=== PATIENT | female | born 1970 | race Two or more races ===

== ENCOUNTER → 2024-02-26 | Outpatient (BNVA) | payer BC, SELFPAY | END | disposition home or self-care (01) | PROVIDERS: PCP Internal Medicine; Referring Provider Internal Medicine; Visit Provider Urology | DX: N32.81 Overactive bladder (principal); G89.4 Chronic pain syndrome; Z87.440 Personal history of urinary (tract) infections; E66.9 Obesity, unspecified; Z68.29 Body mass index [BMI] 29.0-29.9, adult | CPT/HCPCS: 81003; 99212; G0463 ==

== ENCOUNTER → 2024-02-27 | Outpatient (CLI) | payer BC, SELFPAY ==
[2024-02-27 16:52] LABS: Basophils % (Auto) 1 % (0-2.5); Eosinophils # (Auto) 0.1 Thou/mm3 (0.0-0.5); Eosinophils % (Auto) 1 % (0-10); Hematocrit 41.8 % (36.0-46.0); Hemoglobin 14.2 g/dL (12.0-16.0); Immature Granulocytes % (Auto) 1 % (0-0); Immature Granulocytes Auto 0.04 Thou/mm3 (0.00-0.00); Lymphocytes # (Auto) 1.2 Thou/mm3 (1.0-4.8); Lymphocytes % (Auto) 26 % (10-50); Mean Corpuscular Hemoglobin 30.9 pg (25.0-35.0); Mean Corpuscular Volume 91 fL (80-100); Monocytes # (Auto) 0.3 Thou/mm3 (0.0-0.8); Monocytes % (Auto) 7 % (0-12); Neutrophils % (Auto) 64 % (37-80); Nucleated Red Blood Cell % 0 /100 WBC (0); Platelet Count 269 Thou/mm3 (140-440); RDW Standard Deviation 38.9 fL (36.4-46.3); Red Blood Count 4.59 Miln/mm3 (4.00-5.20); White Blood Count 4.6 Thou/mm3 (3.6-11.0)
[2024-02-27 17:11] LABS: Alanine Aminotransferase 72 U/L (10-49); Albumin, Serum 4.9 gm/dL (3.5-5.0); Albumin/Globulin Ratio 2.5 (1.2-2.2); Alkaline Phosphatase 171 U/L (46-116); Anion Gap 8 (7-16); Aspartate Amino Transferase 37 U/L (0-34); BUN/Creatinine Ratio 16 Ratio (12-20); Bilirubin,Total 0.7 mg/dL (0.3-1.2); Blood Urea Nitrogen 11 mg/dL (9-23); C-Reactive Protein < 0.4 mg/dL (0.0-0.9); Calcium 10.1 mg/dL (8.3-10.6); Calcium (Corrected) 10.1 mg/dL (8.5-10.1); Carbon Dioxide 29.4 mMol/L (20.0-31.0); Chloride 103 mMol/L (98-107); Creatinine (Component) 0.7 mg/dL (0.6-1.3); Glucose 103 mg/dL (74-106); Osmolality,Calculated 278 (275-295); Potassium 4.2 mMol/L (3.4-5.1); Sodium 140 mMol/L (136-145); Total Protein 6.9 gm/dL (5.7-8.2); eGFR > 60 See Note
[2024-02-27 17:13] LABS: Creatinine,Random Urine 116 mg/dL (30-125); Protein Total, Random Urine 9 mg/dL (1-14)
[2024-02-27 17:30] LABS: Sed Rate (ESR) 7 mm/hr (0-30)
[2024-03-03 13:47] LABS: Sjogren's antibody (SS-A) <1.0 NEG AI (<1.0 NEGATIVE); Sm Antibody <1.0 NEG AI (<1.0 NEGATIVE)
[2024-03-04 06:33] LABS: Complement Component C3* 151 mg/dL (83-193); Complement Component C4c* 28 mg/dL (15-57); DNA (ds) Antibody* <1 IU/mL; Sjogren's Antibody (SS-B) <1.0 NEG AI (<1.0 NEGATIVE); Sm/RNP Antibody <1.0 NEG AI (<1.0 NEGATIVE)
== END | disposition home or self-care (01) ==
LOC: COPL 15:47
PROVIDERS: PCP Internal Medicine; Referring Provider Internal Medicine Rheumatology; Visit Provider Internal Medicine Rheumatology
DX: R76.8 Other specified abnormal immunological findings in serum (principal)
CPT/HCPCS: 36415; 80053; 82570; 84156; 85025; 85652; 86140; 86160; 86225; 86235

== ENCOUNTER → 2024-03-04 | Outpatient (CLI) | payer BC, SELFPAY ==
--- NOTE | 2024-03-04 16:00 | XR_ITS ---
Examination: CT maxillofacial, without intravenous contrast. 2-D sagittal reconstructions. 3-D reconstructions. Date and time of exam:March 04, 2024 1607 hours INDICATIONS: Sinus pressure and pain beginning 5 years ago CTDI: vol (mGy):7.72 DLP: (mGycm):115 Technique: Multiple axial images of maxillofacial region, 3.0 mm slice thickness. 2-D sagittal and coronal reconstructions. 3-D reconstructions. Low dose protocols were performed. One or more of the following dose reduction techniques were used; automated exposure control, adjustment of the mA and/or KV according to patient size, use of iterative reconstruction technique. Findings: Mild mucosal thickening ethmoid air cells Maxillary antra trace mucosal thickening No deviation nasal septum Mucosal thickening up to 3 mm in the nasal airways No occlusion ostiomeatal complexes No nasopharyngeal mass Negative for otitis media Negative for acquired cholesteatoma Adequate mastoid aeration The optic globes exhibit symmetry with no retro-orbital mass lesion No cerebral mass lesion is noted IMPRESSION: Mild sinusitis as above
== END | disposition home or self-care (01) ==
LOC: CCTX 15:38
PROVIDERS: Referring Provider Otolaryngology; Visit Provider Otolaryngology
DX: J32.8 Other chronic sinusitis (principal)
CPT/HCPCS: 70486

== ENCOUNTER 2024-03-25 05:10 | Emergency (ER) | payer BC, SELFPAY ==
[2024-03-25 05:19] VITALS: BP 135/91; PULSE 71; RESP 19; TEMP 36.6; O2SAT 100
--- NOTE | 2024-03-25 05:28 | XR_ITS ---
Examination: CT abdomen and pelvis without contrast. Coronal 3-D reconstructions. Sagittal 2-D reconstructions. Date and time of exam:March 25, 2024 at 0541 hrs. Indications: Bilateral flank and lower back pain beginning 2 days ago, history kidney stones on CT abdomen pelvis February 01, 2016 CTDI: vol (mGy): 8.97 DLP: (mGycm): 478 Technique: Axial images of the abdomen have been obtained, 3 mm slice thickness Intravenous contrast material has not been administered. Low dose protocols were performed. One or more of the following dose reduction techniques were used; automated exposure control, adjustment of the mA and/or KV according to patient size, use of iterative reconstruction technique. Findings: No focal liver lesions or biliary tract dilatation Spleen is not enlarged No pancreatic mass Bilateral renal calculi including 3 mm calculus lower pole right kidney and 1 to 2 mm renal calculi left kidney Mild to moderate left hydronephrosis secondary to 4 mm distal left ureterovesical junction calculus Aorta normal size No bowel obstruction Normal appendix No diverticulitis Anteverted uterus Grade 1 anterolisthesis L4 on L5 Impression: Bilateral renal calculi Mild to moderate left hydronephrosis secondary to 4 mm distal left ureterovesical junction calculus
--- NOTE | 2024-03-25 05:29 | PD.EDRME ---
Rapid Medical Screening Exam RME Arrival date/time: 03/25/24 05:10 53-year-old female past medical history of fibromyalgia and lupus presents emergency department complaining of bilateral flank pain, painful urination, and nausea. Chief Complaint: Urogenital-Female Time Seen by Provider: 03/25/24 05:25 Vital signs: Vital Signs Temperature 97.8 F 03/25/24 05:19 Pulse Rate 71 03/25/24 05:19 Respiratory Rate 19 03/25/24 05:19 Blood Pressure 135/91 H 03/25/24 05:19 Pulse Oximetry (%) 100 03/25/24 05:19 Oxygen Delivery Method Room Air 03/25/24 05:19 Vital signs reviewed by provider: Yes
[2024-03-25 06:19] LABS: Collection Type, Urine Clean Catch
[2024-03-25 06:19] LABS: Basophils % (Auto) 0 % (0-2.5); Eosinophils # (Auto) 0.1 Thou/mm3 (0.0-0.5); Eosinophils % (Auto) 1 % (0-10); Hematocrit 38.9 % (36.0-46.0); Hemoglobin 13.5 g/dL (12.0-16.0); Immature Granulocytes % (Auto) 0 % (0-0); Immature Granulocytes Auto 0.04 Thou/mm3 (0.00-0.00); Lymphocytes # (Auto) 1.2 Thou/mm3 (1.0-4.8); Lymphocytes % (Auto) 11 % (10-50); Mean Corpuscular HGB Conc 34.7 g/dl (31.0-37.0); Mean Corpuscular Hemoglobin 31.5 pg (25.0-35.0); Mean Corpuscular Volume 91 fL (80-100); Monocytes # (Auto) 0.9 Thou/mm3 (0.0-0.8); Monocytes % (Auto) 8 % (0-12); Neutrophils # (Auto) 9.2 Thou/mm3 (1.8-7.7); Neutrophils % (Auto) 80 % (37-80); Nucleated Red Blood Cell % 0 /100 WBC (0); Platelet Count 201 Thou/mm3 (140-440); RDW Standard Deviation 40.9 fL (36.4-46.3); Red Blood Count 4.28 Miln/mm3 (4.00-5.20); White Blood Count 11.5 Thou/mm3 (3.6-11.0)
[2024-03-25 06:22] LABS: Bilirubin,Urine Negative (Negative); Blood,Urine 2+ (Negative); Clarity,Urine Clear (Clear/Hazy); Color,Urine Yellow (Lt Yel-Yel); Culture Indicated,Urine Not Indicated; Glucose, Urine Negative (Negative); Ketones,Urine Negative (Negative); Leukocyte Esterase,Urine Negative (Negative); Nitrite,Urine Negative (Negative); Protein,Urine 1+ (Neg - Trace); RBC,Urine 33 /hpf (0-3); Specific Gravity,Urine 1.014 (1.001-1.035); Squamous Epithelial Cell,Urine 1 /hpf (0-5); Urobilinogen,Urine Negative mg/dL (0.0-1.0); WBC,Urine 7 /hpf (0-5)
[2024-03-25] MEDS: KETOROLAC INJ 60 MG/2 ML VIAL 30 MG IM (06:29)
[2024-03-25] MEDS: ONDANSETRON ODT 4 MG TABRAP PO (06:29)
[2024-03-25 06:41] LABS: Alanine Aminotransferase 47 U/L (10-49); Albumin, Serum 4.4 gm/dL (3.5-5.0); Albumin/Globulin Ratio 2.1 (1.2-2.2); Alkaline Phosphatase 142 U/L (46-116); Anion Gap 5 (7-16); Aspartate Amino Transferase 41 U/L (0-34); BUN/Creatinine Ratio 11 Ratio (12-20); Bilirubin,Total 0.4 mg/dL (0.3-1.2); Blood Urea Nitrogen 10 mg/dL (9-23); Calcium 9.9 mg/dL (8.3-10.6); Calcium (Corrected) 9.9 mg/dL (8.5-10.1); Carbon Dioxide 28.7 mMol/L (20.0-31.0); Chloride 109 mMol/L (98-107); Creatinine (Component) 0.9 mg/dL (0.6-1.3); Estimated Creatinine Clearance 5.2 mL/min (>60); Globulin 2.1 gm/dL (2.3-3.5); Glucose 97 mg/dL (74-106); Lipase 41 U/L (12-53); Osmolality,Calculated 283 (275-295); Potassium 4.3 mMol/L (3.4-5.1); Sodium 143 mMol/L (136-145); Total Protein 6.5 gm/dL (5.7-8.2); eGFR > 60 See Note
--- NOTE | 2024-03-25 07:05 | PRELIM_ITS ---
CT scan of the abdomen and pelvis without intravenous contrast (axial sections with sagittal and coronal reformats) March 25, 2024 0540 hours Clinical History: Bilateral flank pain history of kidney stone Comparison: No prior study is available for comparison. Findings: There is scarring in bilateral lower lobes. Bilateral breast implants are seen. There is a 4mm obstructing calculus at the left ureterovesical junction with mild hydroureteronephrosis. The left kidney is enlarged with extensive perinephric fat stranding. Punctate nonobstructing renal calculi are seen bilaterally. Fatty infiltration of the liver is noted. The gallbladder, pancreas, spleen and adrenals are unremarkable on this noncontrast study. No evidence of bowel obstruction. Hyperdense material in the stomach is noted. The appendix is within normal limits. There is no mesenteric or retroperitoneal adenopathy. The urinary bladder is incompletely distended, limiting evaluation for wall thickening. There is no free fluid or free air. The osseous structures are unremarkable. Impression: A 4mm obstructing calculus at the left ureterovesical junction with mild hydroureteronephrosis. Extensive left sided perinephric fat stranding. While nonspecific, urinary infection cannot be excluded. Recommend clinical correlation. Hyperdense material in the stomach, which may represent ingested medication versus retained oral contrast. However, in the appropriate clinical setting, the possibility of active gastrointestinal hemorrhage cannot be excluded. Other findings as described above. Discussion Details: Results verbally communicated to : Dr. Jalloh at 06:56 AM 03/25/2024 Report Electronically Signed By: Kendy Matthews 03/25/2024 7:04:56 AM [EST]
--- NOTE | 2024-03-25 07:43 | EDNOTE_ITS ---
<Statement entered by Nona Branch MD - 03/25/24 14:04> As co-signing physician, I was present and available for consult prn. I concur with the plan and care as documented by the midlevel provider. ED Female Urogenital RME/HPI General Chief complaint: Urogenital-Female Stated complaint: LOWER BACK PAIN, PAIN WITH URINATION Time Seen by Provider: 03/25/24 05:25 Arrival date/time: 03/25/24 05:10 53-year-old female past medical history of kidney stone requiring stent placement, fibromyalgia and lupus presents emergency department complaining of bilateral flank pain mostly in the left side, painful urination, and nausea. Limitations: no limitations RME / HPI RME / HPI Narrative: 03/25/24 05:10 53-year-old female past medical history of fibromyalgia and lupus presents emergency department complaining of bilateral flank pain, painful urination, and nausea. Related Data Home Medications ?Medication ?Instructions ?Recorded ?Confirmed Cetirizine * (ZYRTEC *) 10 mg PO QAM #0 tabs 6 02/26/24 magnesium 250 mg tablet 500 mg PO QDAY #0 tabs 09/1202/26/24 meloxicam 15 mg tablet (Mobic) 15 mg PO HS #0 tabs 02/2702/26/24 mirabegron 50 mg tablet,extended 50 mg PO QDAY ##0 02/2702/26/24 release 24 hr (Myrbetriq) hydroxychloroquine 200 mg tablet 400 mg PO QHS 3 02/26/24 omeprazole 40 mg capsule,delayed 40 mg PO QDAY 3 02/26/24 release tizanidine 4 mg capsule 4 mg PO QDAY PRN 05/12/22 pregabalin 150 mg capsule (Lyrica) 150 mg PO QDAY 11/1202/26/24 Previous Rx's ?Medication ?Instructions ?Recorded ketorolac 10 mg tablet 10 mg PO TID PRN pain 3 days #10 03/25/24 tabs ondansetron 4 mg disintegrating 4 mg PO Q8H PRN nausea and 03/25/24 tablet vomiting #10 tabs tamsulosin 0.4 mg capsule (Flomax) 0.4 mg PO QDAY 14 d ays #14 caps 03/25/24 Allergies Allergy/AdvReac Type Severity Reaction Status Date / Time Penicillins Allergy Severe DIFF Unverified 02/26/24 14:42 BREATHING, SWELLING hydrocodone Allergy Unknown DIZZY AND Verified 02/26/24 14:42 VOMITING hydromorphone Allergy Unknown DIZZY, Verified 02/26/24 14:42 VOMITING morphine Allergy Unknown DIZZY,VOMIT Verified 02/26/24 14:42 ING Review of Systems Review of Systems Systems Reviewed: All systems reviewed, normal except as documented Constitutional Constitutional: Reports system reviewed and no additional complaints, except as documented, Denies fever(s) and Denies headache(s) Eyes Eyes: Reports system reviewed and no additional complaints, except as documented and Denies blurry vision ENT Ears, Nose, Mouth, and Throat: Reports system reviewed and no additional complaints, except as documented, Denies headache(s), Denies nasal congestion and Denies nasal discharge Cardiovascular Cardiovascular: Reports system reviewed and no additional complaints, except as documented, Denies chest pain and Denies dyspnea Respiratory Respiratory: Reports system reviewed and no additional complaints, except as documented, Denies chest congestion, Denies cough and Denies dyspnea Gastrointestinal Gastrointestinal: Reports system reviewed and no additional complaints, except as documented, Reports abdominal pain, Reports nausea and Reports vomiting Genitourinary Genitourinary: Reports system reviewed and no additional complaints, except as documented, Denies dysuria and Reports other (Left flank pain) Integumentary/Breasts Skin/Breast: Reports system reviewed and no additional complaints, except as documented and Denies rash Neurologic Neurologic: Reports system reviewed and no additional complaints, except as documented, Reports as per HPI and Denies headache(s) Past Medical History Past Medical History CARDIAC: Negative Congestive Heart Failure RESPIRATORY: Negative Chronic Obstructive Pulmonary Disease (COPD) GENITOURINARY: Negative Renal Disease ENDOCRINE: Negative Diabetes Mellitus Type 1 or Diabetes Mellitus Type 2 Social History SMOKING STATUS: Never smoker ED Exam General Limitations: Present no limitations General appearance: Present alert and in no apparent distress Head Head exam: Present atraumatic Eye Eye exam: Present normal appearance, PERRL and EOMI ENT ENT exam: Present normal exam, normal oropharynx and mucous membranes moist Neck Neck exam: Present normal inspection, full ROM and trachea midline Chest Chest inspection: Present normal inspection and symmetric chest wall rise Respiratory Respiratory exam: Present normal lung sounds bilaterally Cardiovascular Cardiovascular exam: Present regular rate, normal rhythm and normal heart sounds Abdominal Exam Abdominal exam: Present soft and normal bowel sounds Extremities Exam Extremities exam: Present normal inspection and full ROM Back Exam Back exam: Present normal inspection, full ROM and paraspinal tenderness; Absent tenderness, CVA tenderness (R) or CVA tenderness (L) Neurological Exam Neurological exam: Present alert, oriented X3 and CN II-XII intact Psychiatric Psychiatric exam: Present normal affect and normal mood Skin Skin exam: Present warm, dry, intact and normal color Course Quality Measures none Orders Category Date Time Status CT abdomen pelvis wo con Stat Exams 03/25/24 05:28 Completed CBC Stat Lab 03/25/24 06:08 Completed CMP [Comprehensive Metabolic Panel] Stat Lab 03/25/24 06:08 Completed Lipase Stat Lab 03/25/24 06:08 Completed Urinalysis, C/S if Indicated Stat Lab 03/25/24 06:00 Completed Ketorolac Inj [Toradol Inj] Med 03/25/24 05:28 Discontinued 30 mg IM X1 ONE Ketorolac Inj [Toradol Inj] Med 03/25/24 07:43 Discontinued 30 mg IM X1 ONE Ondansetron Odt [Zofran Odt] Med 03/25/24 05:28 Discontinued 4 mg PO X1 ONE Vital Signs Vital signs: Vital Signs Temperature 97.8 F 03/25/24 05:19 Pulse Rate 71 03/25/24 05:19 Respiratory Rate 19 03/25/24 05:19 Blood Pressure 135/91 H 03/25/24 05:19 Pulse Oximetry (%) 100 03/25/24 05:19 Oxygen Delivery Method Room Air 03/25/24 05:19 O2 saturation 100% on room air with normal limits Urogenital - Female MDM Narrative MDM Narrative:: 53-year-old female past medical history of kidney stone requiring stent placement, fibromyalgia and lupus presents emergency department complaining of bilateral flank pain mostly in the left side, painful urination, and nausea. On exam patient well-appearing patient does not appear ill or toxic patient does not appear to be acute distress Lab work as well as CT scan obtained lab work unremarkable CT scan consistent with distal 4 mm kidney stone consistent with patient's pain Patient was given Toradol emergency department which did improve her pain patient given Zofran which relieved her nausea Patient given 1 more dose of Toradol prior to disposition Patient discharged home in no distress to follow-up with primary care doctor in the next 24 to 48 hours and for any worsening symptoms to return to the ER immediately Patient data External records reviewed:: [facility] previous records Clinical information provided by:: patient Social determinants that could affect healthcare access:: none Patient has the following chronic illnesses:: See history How is presenting disease/condition affected by chronic disease/condition?: caused by Evaluation data The following diagnostics were reviewed and interpreted by me:: lab results and radiology exam(s) Lab and/or radiology exams considered but not ordered:: Labs radiology obtain Interpretation Summary: Reviewed by me Medications / Prescriptions Medications or Prescriptions considered but not ordered:: Given Medication administrations:: Medication Administration History Discontinued Medications Ketorolac Tromethamine (Ketorolac Inj 60 Mg/2 Ml Vial) 30 mg IM X1 ONE Stop: 03/25/24 05:29 Last Admin: 03/25/24 06:29 Dose: 30 mg Documented By: JAVID Ketorolac Tromethamine (Ketorolac Inj 30 Mg/Ml Vial) 30 mg IM X1 ONE Stop: 03/25/24 07:44 Last Admin: 03/25/24 07:48 Dose: 30 mg Documented By: MARION Ondansetron HCl (Ondansetron Odt 4 Mg Tabrap) 4 mg PO X1 ONE; Protocol Stop: 03/25/24 05:29 Last Admin: 03/25/24 06:29 Dose: 4 mg Documented By: JAVID Given Consultations Consultation(s) initiated? (list below): No Diagnosis Urogenital Female Differential Diagnosis: urinary tract infection, cystitis and other (Renal colic) Most likely diagnosis given after review of the tests above:: Renal colic Admission Indicated Admission indicated?: not indicated Admission Request Was there a request for admission?: No Disposition Plan Disposition Plan: Discharge Discharge Attestation Discharge Attestation: The patient and all family members were given an opportunity to ask questions and understood the discharge instructions. Discharge instructions specifically effects, indications for sooner follow up or return to the emergency department, and the expected course of current diagnosis. Patient condition: Stable Discharge Plan Plan Patient Disposition: HOME (Self Care) Disposition Comment: Stable Prescriptions/Referrals Prescriptions/Med Rec: New tamsulosin [Flomax] 0.4 mg capsule 0.4 mg PO QDAY 14 Days Qty: 14 0RF ondansetron 4 mg tablet,disintegrating 4 mg PO Q8H PRN (Reason: nausea and vomiting) Qty: 10 0RF ketorolac 10 mg tablet 10 mg PO TID PRN (Reason: pain) 3 Days Qty: 10 0RF No Action pregabalin [Lyrica] 150 mg capsule 150 mg PO QDAY omeprazole 40 mg capsule,delayed release(DR/EC) 40 mg PO QDAY hydroxychloroquine 200 mg tablet 400 mg PO QHS tizanidine 4 mg capsule 4 mg PO QDAY PRN Cetirizine * (ZYRTEC *) 10 MG tablet 10 mg PO QAM Qty: 0 meloxicam [Mobic] 15 MG tablet 15 mg PO HS Qty: 0 magnesium 250 MG tablet 500 mg PO QDAY Qty: 0 mirabegron [Myrbetriq] 50 MG tablet extended release 24 hr 50 mg PO QDAY Qty: 0 Referrals: Alex Nino MD [Primary Care Provider] - 03/27/24 Problem List Clinical Impression: Renal colic Patient/Caregiver Discharge Instructions Education Materials: ED Kidney Stone w/ Colic Additional Instructions: Please follow up with your urologist in the next 24-48hrs for any worsening symptoms return here immediately Print Language: Nicaraguan Stand Alone Forms: Rachel Award Info., Patient Portal Info Letter PA/ASSOCIATE PROGRAM MANAGER Supervising Physician PA/ASSOCIATE PROGRAM MANAGER Supervising Physician: Dr BRANCH
[2024-03-25] MEDS: KETOROLAC INJ 30 MG/ML VIAL IM (07:48)
== END 2024-03-25 07:54 | disposition home or self-care (01) ==
PROVIDERS: Emergency Provider Emergency Medicine; PCP Internal Medicine
DX: N23 Unspecified renal colic (principal)
CPT/HCPCS: 36415; 74176; 80053; 81001; 83690; 85025; 96372; 99284; J1885; Q0162

== ENCOUNTER → 2024-04-15 | Outpatient (CLI) | payer BC, SELFPAY ==
[2024-04-15 16:37] LABS: Basophils % (Auto) 1 % (0-2.5); Eosinophils # (Auto) 0.1 Thou/mm3 (0.0-0.5); Eosinophils % (Auto) 2 % (0-10); Hemoglobin 15.2 g/dL (12.0-16.0); Immature Granulocytes % (Auto) 0 % (0-0); Immature Granulocytes Auto 0.01 Thou/mm3 (0.00-0.00); Lymphocytes # (Auto) 1.3 Thou/mm3 (1.0-4.8); Lymphocytes % (Auto) 23 % (10-50); Mean Corpuscular Hemoglobin 30.5 pg (25.0-35.0); Mean Corpuscular Volume 92 fL (80-100); Monocytes # (Auto) 0.4 Thou/mm3 (0.0-0.8); Monocytes % (Auto) 6 % (0-12); Neutrophils # (Auto) 3.9 Thou/mm3 (1.8-7.7); Neutrophils % (Auto) 69 % (37-80); Nucleated Red Blood Cell % 0 /100 WBC (0); Platelet Count 281 Thou/mm3 (140-440); RDW Standard Deviation 40.9 fL (36.4-46.3); Red Blood Count 4.99 Miln/mm3 (4.00-5.20); White Blood Count 5.7 Thou/mm3 (3.6-11.0)
[2024-04-24 03:03] LABS: Immunoglobulin G Subclass 1 361 mg/dL (382-929); Immunoglobulin G Subclass 2 229 mg/dL (241-700); Immunoglobulin G Subclass 3 13 mg/dL (22-178); Immunoglobulin G Subclass 4 1.2 mg/dL (4-86)
[2024-04-24 06:53] LABS: IgA, Serum* 118 mg/dL (47-310); IgE, Serum* <2 kU/L (114 OR LESS); IgM, Serum* 73 mg/dL (50-300); Immunoglobulin G Total 653 mg/dL (600-1640)
== END | disposition home or self-care (01) ==
LOC: COPL 15:36
PROVIDERS: PCP Internal Medicine; Referring Provider Allergy & Immunology; Visit Provider Allergy & Immunology
DX: J32.8 Other chronic sinusitis (principal); J30.1 Allergic rhinitis due to pollen
CPT/HCPCS: 36415; 82784; 82785; 82787; 85025

== ENCOUNTER → 2024-05-07 | Outpatient (CLI) | payer BC, SELFPAY ==
--- NOTE | 2024-05-07 13:30 | XR_ITS ---
Examination: Bilateral hips, AP pelvis, 5 views Technique: AP, lateral views both hips, AP pelvis, 5 views Exam date and time: May 07, 2024 1338 hours INDICATIONS: Bilateral hip pain beginning 3 weeks ago. FINDINGS: No hip or pelvic fracture No hip dislocations Minimal bilateral hip osteoarthritis IMPRESSION: Minimal bilateral hip osteoarthritis
--- NOTE | 2024-05-07 13:30 | XR_ITS ---
Examination: Lumbar spine, 5 views Technique: Lumbar spine AP, lateral, coned lateral lower lumbar spine, bilateral obliques 5 views Exam date and time: May 07, 2024 1338 hours INDICATIONS: Low back pain beginning 3 weeks ago FINDINGS: Moderate osteopenia. Grade 1 anterolisthesis L5 on S1 Moderate disc narrowing L5-S1 No lumbar fracture IMPRESSION: Moderate degenerative disc disease L5-S1
== END | disposition home or self-care (01) ==
PROVIDERS: PCP Internal Medicine; Referring Provider Nurse Practitioner Family; Visit Provider Nurse Practitioner Family
DX: M16.0 Bilateral primary osteoarthritis of hip (principal); M51.379 Other intervertebral disc degeneration, lumbosacral region without mention of lumbar back pain or lower extremity pain
CPT/HCPCS: 72110; 73523

== ENCOUNTER 2024-05-08 03:03 | Emergency (ER) | payer BC, SELFPAY ==
[2024-05-08 03:03] VITALS: BMI 29.5
[2024-05-08 03:15] VITALS: BP 114/83; PULSE 76; RESP 16; TEMP 36.6; O2SAT 98
--- NOTE | 2024-05-08 03:25 | XR_ITS ---
Examination: CT abdomen and pelvis without contrast. Coronal 3-D reconstructions. Sagittal 2-D reconstructions. Date and time of exam:May 08, 2024 0403 hours INDICATIONS: Right flank pain beginning 3 days ago CTDI: vol (mGy): 8.93 DLP: (mGycm): 466 Technique: Axial images of the abdomen have been obtained, 3 mm slice thickness Intravenous contrast material has not been administered. Low dose protocols were performed. One or more of the following dose reduction techniques were used; automated exposure control, adjustment of the mA and/or KV according to patient size, use of iterative reconstruction technique. Findings: No focal liver or splenic lesions Contracted gallbladder No pancreatic mass Tiny left renal calculi 4 mm right ureteropelvic junction calculus no significant hydronephrosis No bowel obstruction No bladder mass or bladder calculi IMPRESSION: 4 mm right ureteropelvic junction calculus
--- NOTE | 2024-05-08 03:26 | PD.EDRME ---
Rapid Medical Screening Exam RME Arrival date/time: 05/08/24 03:03 53F with history of kidney stones and fibromyalgia presents to ED with 1 day of R flank pain, N/V, and difficulty urinating. Patient states this feels similar to previous kidney stones. Chief Complaint: Back Pain/Injury Vital signs: Vital Signs Temperature 97.9 F 05/08/24 03:15 Pulse Rate 76 05/08/24 03:15 Respiratory Rate 16 05/08/24 03:15 Blood Pressure 114/83 05/08/24 03:15 Pulse Oximetry (%) 98 05/08/24 03:15 Oxygen Delivery Method Room Air 05/08/24 03:15
[2024-05-08] MEDS: KETOROLAC INJ 60 MG/2 ML VIAL IM (03:39)
[2024-05-08] MEDS: ONDANSETRON ODT 4 MG TABRAP PO (03:40)
[2024-05-08 04:19] LABS: Basophils # (Auto) 0.1 Thou/mm3 (0.0-0.2); Basophils % (Auto) 1 % (0-2.5); Eosinophils # (Auto) 0.1 Thou/mm3 (0.0-0.5); Eosinophils % (Auto) 2 % (0-10); Hematocrit 37.8 % (36.0-46.0); Hemoglobin 12.8 g/dL (12.0-16.0); Immature Granulocytes % (Auto) 0 % (0-0); Immature Granulocytes Auto 0.01 Thou/mm3 (0.00-0.00); Lymphocytes # (Auto) 1.5 Thou/mm3 (1.0-4.8); Lymphocytes % (Auto) 30 % (10-50); Mean Corpuscular HGB Conc 33.9 g/dl (31.0-37.0); Mean Corpuscular Hemoglobin 30.8 pg (25.0-35.0); Mean Corpuscular Volume 91 fL (80-100); Monocytes # (Auto) 0.4 Thou/mm3 (0.0-0.8); Monocytes % (Auto) 9 % (0-12); Neutrophils % (Auto) 59 % (37-80); Nucleated Red Blood Cell % 0 /100 WBC (0); Platelet Count 232 Thou/mm3 (140-440); RDW Standard Deviation 40.7 fL (36.4-46.3); Red Blood Count 4.16 Miln/mm3 (4.00-5.20); White Blood Count 5.1 Thou/mm3 (3.6-11.0)
[2024-05-08 04:24] LABS: Collection Type, Urine Clean Catch; Squamous Epithelial Cell,Urine 0 /hpf (0-5)
[2024-05-08 04:34] LABS: Bilirubin,Urine Negative (Negative); Blood,Urine 3+ (Negative); Clarity,Urine Clear (Clear/Hazy); Color,Urine Lt-Yellow (Lt Yel-Yel); Culture Indicated,Urine Not Indicated; Glucose, Urine Negative (Negative); Hyaline Casts,Urine < 1 /hpf (0-1); Ketones,Urine Negative (Negative); Leukocyte Esterase,Urine Negative (Negative); Nitrite,Urine Negative (Negative); PH,Urine 6.5 (5.0-7.0); Protein,Urine 1+ (Neg - Trace); RBC,Urine 273 /hpf (0-3); Specific Gravity,Urine 1.019 (1.001-1.035); Urobilinogen,Urine Negative mg/dL (0.0-1.0); WBC,Urine 3 /hpf (0-5)
--- NOTE | 2024-05-08 05:02 | PRELIM_ITS ---
CT scan of the abdomen and pelvis without intravenous contrast (axial sections with sagittal and coronal reformats) May 08, 2024 at 0403 hours Clinical History: Right flank pain. Comparison: None. Findings: The lung bases are clear. The liver, gallbladder, pancreas, spleen, and adrenals are unremarkable on this noncontrast study. Right UPJ stone measuring 0.4 cm, the stone is not visible on the cnc set up operator image, mild right hydronephrosis. Nonobstructing left kidney stones. No evidence of bowel obstruction. The appendix is within normal limits. There is no mesenteric or retroperitoneal adenopathy. The urinary bladder is unremarkable. There is no free fluid or free air. Mild anterolisthesis of L5. Fecal loading. Partially imaged bilateral breast implants. The uterus and ovaries are within normal limits. Impression: Right UPJ stone associated with hydronephrosis. Nonobstructing left nephrolithiasis. Report Electronically Signed By: Jimmy Montana 05/08/2024 5:01:48 AM [EST]
[2024-05-08 05:35] LABS: Alanine Aminotransferase 32 U/L (10-49); Albumin, Serum 4.2 gm/dL (3.5-5.0); Alkaline Phosphatase 129 U/L (46-116); Anion Gap 8 (7-16); Aspartate Amino Transferase 28 U/L (0-34); BUN/Creatinine Ratio 15 Ratio (12-20); Bilirubin,Total 0.4 mg/dL (0.3-1.2); Blood Urea Nitrogen 15 mg/dL (9-23); Calcium 9.6 mg/dL (8.3-10.6); Calcium (Corrected) 9.6 mg/dL (8.5-10.1); Carbon Dioxide 28.1 mMol/L (20.0-31.0); Chloride 104 mMol/L (98-107); Estimated Creatinine Clearance 59.2 mL/min (>60); Globulin 2.1 gm/dL (2.3-3.5); Glucose 110 mg/dL (74-106); Lipase 33 U/L (12-53); Osmolality,Calculated 281 (275-295); Sodium 140 mMol/L (136-145); Total Protein 6.3 gm/dL (5.7-8.2); eGFR > 60 See Note
--- NOTE | 2024-05-08 08:47 | PD.EDBACK ---
ED Back Injury Pain RME/HPI General Chief Complaint: Back Pain/Injury Stated Complaint: RIGHT SIDE PAIN BACK Time Seen by Provider: 05/08/24 08:27 Arrival date/time: 05/08/24 03:03 RME / HPI RME / HPI Narrative: 05/08/24 03:03 53F with history of kidney stones and fibromyalgia presents to ED with 1 day of R flank pain, N/V, and difficulty urinating. Patient states this feels similar to previous kidney stones. DR. العلي MAIN ED EVALUATION: 53 year old female with history of lupus, kidney stones, and chronic cystitis followed by urologist Dr. Howard presents to the ED for complaint of right flank pain beginning last night. Described as aching in sensation and similar to previous kidney stones, rating as 10/10 in severity. Accompanied by nausea. Patient mentioned she had 1 Ketorolac tablet left from a previous prescription and split it in half last night that did not provide much relief. Today patient requesting additional Ketorolac. Denies fevers, chills, sweats, cough, vomiting, diarrhea, dysuria or hemauria. Related Data Home Medications ?Medication ?Instructions ?Recorded ?Confirmed Cetirizine * (ZYRTEC *) 10 mg PO QAM #0 tabs 04/21/15 02/26/24 magnesium 250 mg tablet 500 mg PO QDAY #0 tabs 09/13/15 02/26/24 meloxicam 15 mg tablet (Mobic) 15 mg PO HS #0 tabs 09/13/15 02/26/24 mirabegron 50 mg tablet,extended 50 mg PO QDAY ##0 09/13/15 02/26/24 release 24 hr (Myrbetriq) hydroxychloroquine 200 mg tablet 400 mg PO QHS 05/12/22 02/26/24 omeprazole 40 mg capsule,delayed 40 mg PO QDAY 05/12/22 02/26/24 release tizanidine 4 mg capsule 4 mg PO QDAY PRN 05/12/22 02/26/24 pregabalin 150 mg capsule (Lyrica) 150 mg PO QDAY 11/24/22 02/26/24 Previous Rx's ?Medication ?Instructions ?Recorded ondansetron 4 mg disintegrating 4 mg PO Q8H PRN nausea and 02/11/25 tablet vomiting #10 tabs ketorolac 10 mg tablet 10 mg PO Q8H PRN pain #10 tabs 05/08/24 tamsulosin 0.4 mg capsule 0.4 mg PO QDAY #7 caps 05/08/24 Allergies Allergy/AdvReac Type Severity Reaction Status Date / Time Penicillins Allergy Severe DIFF Unverified 02/26/24 14:42 BREATHING, SWELLING hydrocodone Allergy Unknown DIZZY AND Verified 02/26/24 14:42 VOMITING hydromorphone Allergy Unknown DIZZY, Verified 02/26/24 14:42 VOMITING morphine Allergy Unknown DIZZY,VOMIT Verified 02/26/24 14:42 ING Review of Systems Review of Systems Narrative Review of Systems: Gen: No fever, no chills, no weight loss EYES: No discharge, no visual changes, no pain HEENT: No ear pain, no congestion, no sore throat PULM: no shortness of breath, no cough, no congestion CV: No chest pain, no palpitations, no chest tightness GI: + nausea, no vomiting, no diarrhea, + pain, no constipation : No frequency, no urgency,? no dysuria Musc/skel: No joint pain, + back pain Skin: No rash, no lesions Neuro: No weakness, no headache Past Medical History Past Medical History CARDIAC: Negative Congestive Heart Failure RESPIRATORY: Negative Chronic Obstructive Pulmonary Disease (COPD) GENITOURINARY: Negative Renal Disease ENDOCRINE: Negative Diabetes Mellitus Type 1 or Diabetes Mellitus Type 2 Social History SMOKING STATUS: Never smoker ED Exam Narrative Physical exam: Exam performed after receiving Toradol. GENERAL APPEARANCE: AxOx4, no obvious distress, nontoxic appearing HEENT: NC, AT. MMM. EOMI, clear conjunctiva, oropharynx clear. NECK: Supple without lymphadenopathy. No stiffness or restricted ROM. HEART: Normal rate and regular rhythm, normal S1/S1, no m/r/g LUNGS: CTAB, moving air well. No crackles or wheezes are heard. ABDOMEN: Soft, nontender, nondistended with good bowel sounds heard. BACK: No midline C/T/L spine pain or deformity, No CVAT, no obvious deformity. EXTREMITIES: Without cyanosis, clubbing or edema. MUSCULOSKELETAL: FROM of all major joints, no chest tenderness NEUROLOGICAL: Grossly nonfocal. Alert and oriented, moving all 4 extremities. CN not formally tested but appear grossly intact. Skin: Warm and dry without any rash. Course Quality Measures none Orders Category Date Time Status CT abdomen pelvis wo con Stat Exams 05/08/24 03:25 Taken CBC Stat Lab 05/08/24 03:38 Completed CMP [Comprehensive Metabolic Panel] Stat Lab 05/08/24 03:38 Completed Lipase Stat Lab 05/08/24 03:38 Completed Urinalysis, C/S if Indicated Stat Lab 05/08/24 03:45 Completed Ketorolac Inj [Toradol Inj] Med 05/08/24 08:43 Discontinued 30 mg IM X1 ONE Ketorolac Inj [Toradol Inj] Med 05/08/24 03:26 Discontinued 60 mg IM X1 ONE Ondansetron Odt [Zofran Odt] Med 05/08/24 03:26 Discontinued 4 mg PO X1 ONE Reevaluation(s) Reevaluation #1: Patient remains clinically stable throughout the emergency department visit. We reviewed all the results, analysis, and treatment plans. Patient is amenable to discharge. Strict return precautions were outlined. Patient was discharged in stable condition. Time: 08:40 Vital Signs Vital signs: Vital Signs Temperature 97.9 F 05/08/24 03:15 Pulse Rate 76 05/08/24 03:15 Respiratory Rate 16 05/08/24 03:15 Blood Pressure 114/83 05/08/24 03:15 Pulse Oximetry (%) 98 05/08/24 03:15 Oxygen Delivery Method Room Air 05/08/24 03:15 Pulse ox is 98% on room air which is adequate. Back Pain / Injury MDM Narrative MDM Narrative:: Rose Saldivar am scribing for and in the presence of Dr. العلي. Patient data External records reviewed:: [facility] previous records (I reviewed ED visit from 03/25/2024 ) Clinical information provided by:: patient Social determinants that could affect healthcare access:: none Patient has the following chronic illnesses:: lupus, kidney stones, and chronic cystitis How is presenting disease/condition affected by chronic disease/condition?: exacerbated by Evaluation data The following diagnostics were reviewed and interpreted by me:: lab results and radiology exam(s) Lab and/or radiology exams considered but not ordered:: None Interpretation Summary: Ordering Physician: Date of Service: Procedure(s): Accession Number(s): cc: ~ CT scan of the abdomen and pelvis without intravenous contrast (axial sections with sagittal and coronal reformats) May 08, 2024 at 0403 hours Clinical History: Right flank pain. Comparison: None. Findings: The lung bases are clear. The liver, gallbladder, pancreas, spleen, and adrenals are unremarkable on this noncontrast study. Right UPJ stone measuring 0.4 cm, the stone is not visible on the automatic glove former image, mild right hydronephrosis. Nonobstructing left kidney stones. No evidence of bowel obstruction. The appendix is within normal limits. There is no mesenteric or retroperitoneal adenopathy. The urinary bladder is unremarkable. There is no free fluid or free air. Mild anterolisthesis of L5. Fecal loading. Partially imaged bilateral breast implants. The uterus and ovaries are within normal limits. Impression: Right UPJ stone associated with hydronephrosis. Nonobstructing left nephrolithiasis. Report Electronically Signed By: Jimmy Montana 05/08/2024 5:01:48 AM [EST] Medications / Prescriptions Medications or Prescriptions considered but not ordered:: None Medication administrations:: Medication Administration History Discontinued Medications Ketorolac Tromethamine (Ketorolac Inj 60 Mg/2 Ml Vial) 60 mg IM X1 ONE Stop: 05/08/24 03:27 Last Admin: 05/08/24 03:39 Dose: 60 mg Documented By: CB Ketorolac Tromethamine (Ketorolac Inj 60 Mg/2 Ml Vial) 30 mg IM X1 ONE Stop: 05/08/24 08:44 Last Admin: 05/08/24 08:53 Dose: 30 mg Documented By: ER Ondansetron HCl (Ondansetron Odt 4 Mg Tabrap) 4 mg PO X1 ONE; Protocol Stop: 05/08/24 03:27 Last Admin: 05/08/24 03:40 Dose: 4 mg Documented By: CB See above Consultations Consultation(s) initiated? (list below): No Diagnosis Differential diagnosis back pain/injury: lumbar radiculopathy, renal colic and pyelonephritis Most likely diagnosis given after review of the tests above:: Renal colic on right side Admission Indicated Admission indicated?: not indicated Admission Request Was there a request for admission?: No Disposition Plan Disposition Plan: Discharge Discharge Attestation Discharge Attestation: The patient and all family members were given an opportunity to ask questions and understood the discharge instructions. Discharge instructions specifically effects, indications for sooner follow up or return to the emergency department, and the expected course of current diagnosis. Patient condition: Stable Discharge Plan Plan Patient Disposition: HOME (Self Care) Prescriptions/Referrals Prescriptions/Med Rec: New ketorolac 10 mg tablet 10 mg PO Q8H PRN (Reason: pain) Qty: 10 0RF Rx Instructions: maximum total duration of 5 days from all oral, intranasal, or parenteral formulations tamsulosin 0.4 mg capsule 0.4 mg PO QDAY Qty: 7 0RF No Action pregabalin [Lyrica] 150 mg capsule 150 mg PO QDAY omeprazole 40 mg capsule,delayed release(DR/EC) 40 mg PO QDAY hydroxychloroquine 200 mg tablet 400 mg PO QHS tizanidine 4 mg capsule 4 mg PO QDAY PRN Cetirizine * (ZYRTEC *) 10 MG tablet 10 mg PO QAM Qty: 0 meloxicam [Mobic] 15 MG tablet 15 mg PO HS Qty: 0 magnesium 250 MG tablet 500 mg PO QDAY Qty: 0 mirabegron [Myrbetriq] 50 MG tablet extended release 24 hr 50 mg PO QDAY Qty: 0 ondansetron 4 mg tablet,disintegrating 4 mg PO Q8H PRN (Reason: nausea and vomiting) Qty: 10 0RF Referrals: Alex Nino MD [Primary Care Provider] - In 1 week Problem List Clinical Impression: Renal colic on right side Patient/Caregiver Discharge Instructions Education Materials: ED Kidney Stone w/ Colic Additional Instructions: Please contact Dr. Howard's office today to schedule follow-up appointment. You can let him know that laboratory testing and CT scan were done in the emergency department today. Feel free return to the emergency department if symptoms worsen or if you notice any new, concerning issues. Print Language: Paraguayan Stand Alone Forms: Rachel Award Info., Patient Portal Info Letter
[2024-05-08] MEDS: KETOROLAC INJ 60 MG/2 ML VIAL 30 MG IM (08:53)
== END 2024-05-08 09:13 | disposition home or self-care (01) ==
PROVIDERS: Physician Assistant; Emergency Provider Emergency Medicine; PCP Internal Medicine
DX: N13.2 Hydronephrosis with renal and ureteral calculous obstruction (principal)
CPT/HCPCS: 36415; 74176; 80053; 81001; 83690; 85025; 96372; 99284; J1885; Q0162

== ENCOUNTER → 2024-05-20 | Outpatient (CLI) | payer BC, SELFPAY ==
[2024-05-20 12:56] LABS: Misc Send Out* See Sep Rpt
[2024-05-25 23:35] LABS: CD19 Percentage 15 % (6-29); CD19, Absolute 221 cells/uL (110-660); CD3 Percentage 72 % (57-85); CD3, Absolute 1038 cells/uL (840-3060); CD3-CD16+CD56+ % 12 % (4-25); CD3-CD16+CD56+ (Abs) 184 cells/uL (70-760); CD4 Percentage 51 % (30-61); CD4, Absolute 718 cells/uL (490-1740); CD4/CD8 Ratio 2.48 (0.86-5.00); CD8 Percentage 20 % (12-42); CD8, Absolute 289 cells/uL (180-1170); Immunoglobulin G Subclass 1 331 mg/dL (382-929); Immunoglobulin G Subclass 2 203 mg/dL (241-700); Immunoglobulin G Subclass 3 13 mg/dL (22-178)
[2024-05-26 06:47] LABS: Immunoglobulin G Total 597 mg/dL (600-1640); Lymphocytes, Absolute 1445 cells/uL (850-3900)
== END | disposition home or self-care (01) ==
LOC: COPL 12:27
PROVIDERS: PCP Internal Medicine; Referring Provider Allergy & Immunology; Visit Provider Allergy & Immunology
DX: D89.89 Other specified disorders involving the immune mechanism, not elsewhere classified (principal); J32.8 Other chronic sinusitis; J30.1 Allergic rhinitis due to pollen
CPT/HCPCS: 36415; 82784; 82787; 86355; 86357; 86359; 86360

== ENCOUNTER → 2024-07-11 | Outpatient (CLI) | payer BC, SELFPAY ==
[2024-07-11 15:08] LABS: Misc Send Out* See Sep Rpt
[2024-07-11 16:14] LABS: Alanine Aminotransferase 42 U/L (10-49); Albumin, Serum 4.6 gm/dL (3.5-5.0); Albumin/Globulin Ratio 2.4 (1.2-2.2); Alkaline Phosphatase 156 U/L (46-116); Anion Gap 11 (7-16); Aspartate Amino Transferase 36 U/L (0-34); BUN/Creatinine Ratio 13 Ratio (12-20); Bilirubin,Total 0.7 mg/dL (0.3-1.2); Blood Urea Nitrogen 12 mg/dL (9-23); Calcium 9.3 mg/dL (8.3-10.6); Calcium (Corrected) 9.3 mg/dL (8.5-10.1); Carbon Dioxide 26.7 mMol/L (20.0-31.0); Chloride 104 mMol/L (98-107); Creatinine (Component) 0.9 mg/dL (0.6-1.3); Globulin 1.9 gm/dL (2.3-3.5); Glucose 130 mg/dL (74-106); Osmolality,Calculated 284 (275-295); Potassium 3.6 mMol/L (3.4-5.1); Sodium 142 mMol/L (136-145); Total Protein 6.5 gm/dL (5.7-8.2); eGFR > 60 See Note
[2024-07-18 07:05] LABS: Complement Component C3* 146 mg/dL (83-193); Complement Component C4c* 28 mg/dL (15-57); DNA (ds) Antibody* <1 IU/mL
== END | disposition home or self-care (01) ==
LOC: COPL 14:44
PROVIDERS: PCP Internal Medicine; Referring Provider Nurse Practitioner Family; Visit Provider Nurse Practitioner Family
DX: M32.9 Systemic lupus erythematosus, unspecified (principal); D89.89 Other specified disorders involving the immune mechanism, not elsewhere classified; J32.8 Other chronic sinusitis
CPT/HCPCS: 36415; 80053; 86160; 86225

== ENCOUNTER → 2024-08-25 | Outpatient (BNVA) | payer BC, SELFPAY | END | disposition home or self-care (01) | PROVIDERS: PCP Internal Medicine; Referring Provider Internal Medicine; Visit Provider Urology | DX: N20.1 Calculus of ureter (principal); Z87.440 Personal history of urinary (tract) infections; N32.81 Overactive bladder; G89.4 Chronic pain syndrome; R10.2 Pelvic and perineal pain; Z87.442 Personal history of urinary calculi | CPT/HCPCS: 81003; 99212; G0463 ==

== ENCOUNTER → 2024-09-11 | Outpatient (CLI) | payer BC, SELFPAY ==
[2024-09-16 14:11] LABS: Complement Component C3* 151 mg/dL (83-193); Complement Component C4c* 26 mg/dL (15-57); DNA (ds) Antibody* 1 IU/mL
== END | disposition home or self-care (01) ==
PROVIDERS: PCP Internal Medicine; Referring Provider Internal Medicine Rheumatology; Visit Provider Internal Medicine Rheumatology
DX: M32.9 Systemic lupus erythematosus, unspecified (principal)
CPT/HCPCS: 36415; 86160; 86225

== ENCOUNTER → 2024-09-26 | Outpatient (CLI) | payer BC, SELFPAY ==
--- NOTE | 2024-09-26 16:31 | XR_ITS ---
Shoulder bilateral, 6 views Technique: Shoulder AP internal rotation, AP external rotation, Y view each shoulder total 6 views Exam date and time :September 26, 2024 1636 hours INDICATIONS: Bilateral shoulder pain beginning one year ago FINDINGS: Moderate osteopenia Mild bilateral osteoarthritis glenohumeral joints No shoulder fractures or shoulder dislocation. No calcific tendinitis IMPRESSION: Mild bilateral osteoarthritis glenohumeral joints
== END | disposition home or self-care (01) ==
LOC: COPL 16:02 → CDIM 16:27
PROVIDERS: PCP Internal Medicine; Referring Provider Allergy & Immunology; Visit Provider Nurse Practitioner Family
DX: M19.012 Primary osteoarthritis, left shoulder (principal); M19.011 Primary osteoarthritis, right shoulder
CPT/HCPCS: 36415; 73030; 82784

== ENCOUNTER 2024-11-04 14:55 | Outpatient (AMB) | payer BC, SELFPAY ==
--- NOTE | 2024-11-04 15:05 | PD.ORTHCLVIS ---
Vital signs 11/04/24 15:09 Height 1.55 m Height Method Measured Weight 71.271 kg Weight Measurement Method Standing Scale BMI 29.6 BP 162/101 H Blood Pressure Source Automatic Cuff Blood Pressure Location Left Upper Arm Position Sitting Respiration 18 Pulse 110 H Pulse Source Monitor Temp 96.8 F Temp Source Temporal Artery Scan Pulse Oximetry (%) 99 Oxygen Delivery Method Room Air Med/Allergies Allergies & Medications Allergies Penicillins Allergy (Severe, Verified 11/04/24 15:10) DIFF BREATHING, SWELLING hydrocodone Allergy (Unknown, Verified 11/04/24 15:10) DIZZY AND VOMITING hydromorphone Allergy (Unknown, Verified 11/04/24 15:10) DIZZY, VOMITING morphine Allergy (Unknown, Verified 11/04/24 15:10) DIZZY,VOMITING Medication Reconciliation Cetirizine * (ZYRTEC *) 10 mg PO QAM #0 tabs 04/21/15 [History Confirmed 11/04/24] magnesium 250 mg tablet 500 mg PO QDAY #0 tabs 09/13/15 [History Confirmed 11/04/24] mirabegron 50 mg tablet,extended release 24 hr (Myrbetriq) 50 mg PO QDAY ##0 09/13/15 [History Confirmed 11/04/24] hydroxychloroquine 200 mg tablet 400 mg PO QHS 05/12/22 [History Confirmed 11/04/24] omeprazole 40 mg capsule,delayed release 40 mg PO QDAY 05/12/22 [History Confirmed 11/04/24] tizanidine 4 mg capsule 4 mg PO QDAY PRN 05/12/22 [History Confirmed 11/04/24] pregabalin 150 mg capsule (Lyrica) 150 mg PO QDAY 11/24/22 [History Confirmed 11/04/24] ondansetron 4 mg disintegrating tablet 4 mg PO Q8H PRN nausea and vomiting #10 tabs 03/25/24 [Rx Confirmed 11/04/24] ketorolac 10 mg tablet 10 mg PO Q8H PRN pain #10 tabs 05/08/24 [Rx Confirmed 11/04/24] meloxicam 15 mg tablet 15 mg PO HS #60 tabs 11/04/24 [Rx] Exam Exam Patient is in no acute distress and is cooperative with the examination today. Breathing is nonlabored. Patient has a normal mood and affect. The patient has a gait that is [nonantalgic] Bilateral extremities were evaluated and demonstrates sensation intact to light touch. Palpable pedal pulses are present. No significant edema is present. Bilateral hips were examined. The patient has no pain with log roll of the hips. Internal rotation to 30 degrees and external rotation to 30 degrees is painless. Negative FADIR. Left knee was examined today. The left knee is in reasonable alignment. Range of motion from 0-120 degrees. Knee is stable to varus and valgus as well as AP translation with <5mm. Patient has a negative McMurrays. There is no pain with patellofemoral compression and no crepitus noted. The knee is nontender to palpation. The right knee was also examined. The right knee is in [neutral] alignment. Range of motion from [0-120] degrees. Knee is stable to varus and valgus as well as AP translation with <5mm. Patient has a [negative] McMurrays. There is [no] pain with patellofemoral compression and [no] crepitus noted. The knee is Tender to palpation medially and laterally The patient's MRI was reviewed by me today. From 2022 there is an MRI that demonstrates a posterior horn of the medial meniscus tear X-rays demonstrate mild arthritis. These x-rays are nonweightbearing Assessment and Plan Problem List (1) Arthritis of right knee: Status: Acute Plan: Patient is a 52-year-old female with a history of right knee arthritis of mild severity as well as a degenerative meniscal tear. We discussed the natural history of degenerative meniscal tear in great detail. We discussed nonoperative options including injections and anti-inflammatories. We also discussed cortisone injections. We also discussed that arthroscopic meniscectomy is an option but she has no mechanical symptoms. We discussed that this typically also does have less than optimal outcomes. Plan 1. Right knee pain: The pain began approximately 6 weeks ago after starting physical therapy for her back, following a fall with her grandchild. The pain has been intermittent and worsened after a recent fall on her knees and elbows. Examination reveals mild swelling, particularly in the left knee. A prescription for an anti-inflammatory medication will be provided. Continue physical therapy, as it has been beneficial for the back and may help with knee pain. If the pain intensifies, an injection can be considered. Referral for physical therapy will be arranged at the same location as previous sessions. Discussed the importance of adhering to physical therapy exercises and techniques learned. Risks and benefits of anti-inflammatory medication were discussed, including potential side effects such as gastrointestinal discomfort. Advised to monitor for any adverse reactions and report if symptoms worsen. Encouraged to avoid activities that may exacerbate knee pain and to use ice packs to reduce swelling. No need for immediate intervention with injections unless pain becomes severe. Copy all Copy selected Office Procedures GNS Level of Care Nursing/Assessment Patient Status: Established Patient Nursing Assessment/Reassesment: Medication Reconciliation, Update PMH in EMR and Vital Signs Coordination of Care: Complex Care and Chronic Disease 1-5, Education Complex Pt/Fam, Consent,records obtained, informed consent, Results/Orders obtained and Staff clarify orders Established Patient Charge Established Patient Point Assignment: 95 Established Patient Point Charge: EP Level 3 (80-115) MA Intake Visit Data Collection New Patient or Established: Established Patient (seen at [facility] within 3 years) Reason for Visit:: RIGHT KNEE INJECTION Seen by Clinical Staff ONLY (RN/MA): No Sports Medicine [place] Required: No PCP or OBGYN visit in last 3 months: Yes Hx Now: No Do You Feel Safe at Home: Yes Authorities Contacted: N/A Questionairres Past Medical History Past Medical History Have you ever been diagnosed with any of the following: Cardiology Problems Congestive Heart Failure: No Respiratory Problems Chronic Obstructive Pulmonary Disease (COPD): No Genital/Urinary Problems Renal Disease: No Endocrine Problems Diabetes Mellitus Type 1: No Diabetes Mellitus Type 2: No Subjective Visit Visit for: follow up visit and knee Immunization / Flu Flu Vaccine in the Last 12 Months: No Flu Vaccine Exclusion Criteria: Refused by Patient History of Present Illness Chief complaint: RIGHT KNEE INJECTION I, Elliot Garcia, have obtained verbal consent from the patient, to be recorded during this encounter which may include, but not limited to, medical history, examination, treatment plans, and relevant health information.? Patient was informed that recording will be read and reviewed by myself before inclusion in the medical chart. The patient is a 53-year-old female who presents today for evaluation of her right knee. She reports experiencing knee pain approximately 6 weeks ago, which she attributes to starting physical therapy for her back following a fall with her grandchild. The onset of the knee pain coincided with the initiation of the physical therapy. She believes that the therapy could be beneficial for her knee as well, as it has significantly improved her back condition. However, she mentions forgetting some of the exercises taught during her previous sessions. Additionally, she describes a recent incident where she fell on her knees and elbows while carrying her grandchild, resulting in bruising and swelling. She is seeking a referral for additional physical therapy sessions and a prescription for an anti-inflammatory medication. Personal History Red flag PMH: none Pain Pain level (0-10): 4 Pain location: anterior Pain quality: sharp and dull Pain timing: increases with activity Associated signs & symptoms: none Treatments Number of previous injections: 2 Improvement with previous injections: Yes Number of Physical Therapy sessions: 0 Improvement with PT: No Improvement with NSAIDS: yes Review of Systems Review of Systems: All systems negative unless otherwise noted in HPI.
[2024-11-04 15:09] VITALS: BP 162/101; PULSE 110; RESP 18; TEMP 36; O2SAT 99; BMI 29.6
== END 2024-11-04 15:36 | disposition home or self-care (01) ==
LOC: HODSRG 14:55
PROVIDERS: PCP Internal Medicine; Referring Provider Internal Medicine; Supervising Provider Orthopaedic Surgery Adult Reconstructive Orthopaedic Surgery; Visit Provider Orthopaedic Surgery Adult Reconstructive Orthopaedic Surgery
DX: M17.11 Unilateral primary osteoarthritis, right knee (principal); S83.206D Unspecified tear of unspecified meniscus, current injury, right knee, subsequent encounter; X58.XXXD Exposure to other specified factors, subsequent encounter; M25.561 Pain in right knee
CPT/HCPCS: 99213; G0463

== ENCOUNTER → 2024-11-28 | Outpatient (BNVA) | payer BC, SELFPAY | END | disposition home or self-care (01) | PROVIDERS: PCP Internal Medicine; Referring Provider Internal Medicine; Visit Provider Urology | DX: N20.0 Calculus of kidney (principal) | CPT/HCPCS: 81003; 99212; G0463 ==

== ENCOUNTER → 2024-12-05 | Outpatient (CLI) | payer BC, SELFPAY ==
[2024-12-05 14:43] LABS: Basophils # (Auto) 0.1 Thou/mm3 (0.0-0.2); Basophils % (Auto) 1 % (0-2.5); Eosinophils # (Auto) 0.1 Thou/mm3 (0.0-0.5); Eosinophils % (Auto) 2 % (0-10); Hematocrit 41.3 % (36.0-46.0); Hemoglobin 14.0 g/dL (12.0-16.0); Immature Granulocytes Auto 0.01 Thou/mm3 (0.00-0.00); Lymphocytes # (Auto) 1.1 Thou/mm3 (1.0-4.8); Lymphocytes % (Auto) 25 % (10-50); Mean Corpuscular HGB Conc 33.9 g/dl (31.0-37.0); Mean Corpuscular Hemoglobin 30.8 pg (25.0-35.0); Mean Corpuscular Volume 91 fL (80-100); Monocytes # (Auto) 0.3 Thou/mm3 (0.0-0.8); Monocytes % (Auto) 8 % (0-12); Neutrophils # (Auto) 2.7 Thou/mm3 (1.8-7.7); Neutrophils % (Auto) 64 % (37-80); Nucleated Red Blood Cell # 0.00 Thou/mm3 (0.00-0.00); Nucleated Red Blood Cell % 0 /100 WBC (0); Platelet Count 275 Thou/mm3 (140-440); RDW Standard Deviation 40.4 fL (36.4-46.3); Red Blood Count 4.54 Miln/mm3 (4.00-5.20); White Blood Count 4.3 Thou/mm3 (3.6-11.0)
[2024-12-05 14:52] LABS: Glucose Estimated Average 94 mg/dL (80-131); Hemoglobin A1C 4.9 % Hgb (4.8-6.0)
[2024-12-05 14:54] LABS: Alanine Aminotransferase 42 U/L (10-49); Albumin, Serum 4.8 gm/dL (3.5-5.0); Albumin/Globulin Ratio 2.5 (1.2-2.2); Alkaline Phosphatase 136 U/L (46-116); Anion Gap 9 (7-16); Aspartate Amino Transferase 37 U/L (0-34); BUN/Creatinine Ratio 10 Ratio (12-20); Bilirubin,Total 0.7 mg/dL (0.3-1.2); Blood Urea Nitrogen 7 mg/dL (9-23); Calcium 9.4 mg/dL (8.3-10.6); Calcium (Corrected) 9.4 mg/dL (8.5-10.1); Carbon Dioxide 29.4 mMol/L (20.0-31.0); Chloride 104 mMol/L (98-107); Creatinine (Component) 0.7 mg/dL (0.6-1.3); Globulin 1.9 gm/dL (2.3-3.5); Glucose 94 mg/dL (74-106); Osmolality,Calculated 281 (275-295); Potassium 4.1 mMol/L (3.4-5.1); Sodium 142 mMol/L (136-145); Total Protein 6.7 gm/dL (5.7-8.2); eGFR > 60 See Note
[2024-12-05 14:58] LABS: Vitamin B12 572 pg/mL (211-911); Vitamin D 25 Hydroxy Total 50.6 ng/mL (7.3-40.2)
== END | disposition home or self-care (01) ==
LOC: COPL 12:58
PROVIDERS: PCP Internal Medicine; Referring Provider Psychiatry & Neurology Neurology; Visit Provider Psychiatry & Neurology Neurology
DX: D51.9 Vitamin B12 deficiency anemia, unspecified (principal); E55.9 Vitamin D deficiency, unspecified; M79.7 Fibromyalgia
CPT/HCPCS: 36415; 80053; 82306; 82607; 83036; 85025

== ENCOUNTER 2025-01-01 13:45 | Outpatient (AMB) | payer BC, SELFPAY ==
--- NOTE | 2025-01-01 14:02 | PD.ORTHCLVIS ---
Vital signs 01/01/25 14:03 Height 1.55 m Height Method Measured Weight 70.987 kg Weight Measurement Method Standing Scale BMI 29.5 BP 134/86 H Blood Pressure Source Automatic Cuff Blood Pressure Location Left Upper Arm Position Sitting Respiration 18 Pulse 85 Pulse Source Monitor Temp 98.2 F Temp Source Temporal Artery Scan Pulse Oximetry (%) 97 Oxygen Delivery Method Room Air Med/Allergies Allergies & Medications Allergies Penicillins Allergy (Severe, Verified 01/01/25 14:04) DIFF BREATHING, SWELLING hydrocodone Allergy (Unknown, Verified 01/01/25 14:04) DIZZY AND VOMITING hydromorphone Allergy (Unknown, Verified 01/01/25 14:04) DIZZY, VOMITING morphine Allergy (Unknown, Verified 01/01/25 14:04) DIZZY,VOMITING Medication Reconciliation Cetirizine * (ZYRTEC *) 10 mg PO QAM #0 tabs 04/21/15 [History Confirmed 01/01/25] magnesium 250 mg tablet 500 mg PO QDAY #0 tabs 09/13/15 [History Confirmed 01/01/25] mirabegron 50 mg tablet,extended release 24 hr (Myrbetriq) 50 mg PO QDAY ##0 09/13/15 [History Confirmed 01/01/25] hydroxychloroquine 200 mg tablet 400 mg PO QHS 05/12/22 [History Confirmed 01/01/25] omeprazole 40 mg capsule,delayed release 40 mg PO QDAY 05/12/22 [History Confirmed 01/01/25] tizanidine 4 mg capsule 4 mg PO QDAY PRN 05/12/22 [History Confirmed 01/01/25] pregabalin 150 mg capsule (Lyrica) 150 mg PO QDAY 11/24/22 [History Confirmed 01/01/25] ondansetron 4 mg disintegrating tablet 4 mg PO Q8H PRN nausea and vomiting #10 tabs 03/25/24 [Rx Confirmed 01/01/25] ketorolac 10 mg tablet 10 mg PO Q8H PRN pain #10 tabs 05/08/24 [Rx Confirmed 01/01/25] meloxicam 15 mg tablet 15 mg PO HS #60 tabs 11/04/24 [Rx Confirmed 01/01/25] Exam Exam Patient is in no acute distress and is cooperative with the examination today. Breathing is nonlabored. Patient has a normal mood and affect. The patient has a gait that is [nonantalgic] Bilateral extremities were evaluated and demonstrates sensation intact to light touch. Palpable pedal pulses are present. No significant edema is present. Bilateral hips were examined. The patient has no pain with log roll of the hips. Internal rotation to 30 degrees and external rotation to 30 degrees is painless. Negative FADIR. Left knee was examined today. The left knee is in reasonable alignment. Range of motion from 0-120 degrees. Knee is stable to varus and valgus as well as AP translation with <5mm. Patient has a negative McMurrays. There is no pain with patellofemoral compression and no crepitus noted. The knee is nontender to palpation. The right knee was also examined. The right knee is in [neutral] alignment. Range of motion from [0-120] degrees. Knee is stable to varus and valgus as well as AP translation with <5mm. Patient has a [negative] McMurrays. There is [no] pain with patellofemoral compression and [no] crepitus noted. The knee is Tender to palpation medially and laterally The patient's MRI was reviewed by me today. From 2022 there is an MRI that demonstrates a posterior horn of the medial meniscus tear X-rays demonstrate mild arthritis. These x-rays are nonweightbearing Assessment and Plan Problem List (1) Arthritis of right knee: Status: Acute Plan: Patient is a 52-year-old female with a history of right knee arthritis of mild severity as well as a degenerative meniscal tear. Doing well with conservative treatment and physical therapy. She reports her pain is improved significantly. She does have a Ann's cyst on the back of her right knee. We discussed natural history of Ann's cyst in great detail today. We discussed we can do anti-inflammatories or injections. She wants to continue with physical therapy Office Procedures GNS Level of Care Nursing/Assessment Patient Status: Established Patient Nursing Assessment/Reassesment: Medication Reconciliation, Update PMH in EMR and Vital Signs Coordination of Care: Complex Care and Chronic Disease 1-5, Education Complex Pt/Fam, Consent,records obtained, informed consent, Results/Orders obtained and Staff clarify orders Established Patient Charge Established Patient Point Assignment: 95 Established Patient Point Charge: EP Level 3 (80-115) MA Intake Visit Data Collection New Patient or Established: Established Patient (seen at [facility] within 3 years) Reason for Visit:: RT KNEE PAIN Seen by Clinical Staff ONLY (RN/MA): No Agency Cashier Required: No PCP or OBGYN visit in last 3 months: Yes Hx Now: No Do You Feel Safe at Home: Yes Authorities Contacted: N/A Questionairres Past Medical History Past Medical History Have you ever been diagnosed with any of the following: Cardiology Problems Congestive Heart Failure: No Respiratory Problems Chronic Obstructive Pulmonary Disease (COPD): No Genital/Urinary Problems Renal Disease: No Endocrine Problems Diabetes Mellitus Type 1: No Diabetes Mellitus Type 2: No Subjective Visit Visit for: follow up visit and knee Immunization / Flu Flu Vaccine in the Last 12 Months: No Flu Vaccine Exclusion Criteria: Refused by Patient History of Present Illness Chief complaint: RT KNEE PAIN I, Elliot Garcia, have obtained verbal consent from the patient, to be recorded during this encounter which may include, but not limited to, medical history, examination, treatment plans, and relevant health information.? Patient was informed that recording will be read and reviewed by myself before inclusion in the medical chart. The patient is a 54-year-old female who presents today for evaluation of her right knee. She reports experiencing knee pain approximately 6 weeks ago, which she attributes to starting physical therapy for her back following a fall with her grandchild. The onset of the knee pain coincided with the initiation of the physical therapy. She believes that the therapy could be beneficial for her knee as well, as it has significantly improved her back condition. However, she mentions forgetting some of the exercises taught during her previous sessions. Additionally, she describes a recent incident where she fell on her knees and elbows while carrying her grandchild, resulting in bruising and swelling. She has been doing well with physical therapy and is very happy Personal History Red flag PMH: none Pain Pain level (0-10): 5 Pain location: anterior Pain quality: sharp and dull Pain timing: increases with activity Associated signs & symptoms: none Ambulatory data Ambulatory device: none Treatments Number of previous injections: 2 Improvement with previous injections: Yes Number of Physical Therapy sessions: 0 Improvement with PT: No Improvement with NSAIDS: yes Review of Systems Review of Systems: All systems negative unless otherwise noted in HPI.
[2025-01-01 14:03] VITALS: BP 134/86; PULSE 85; RESP 18; TEMP 36.8; O2SAT 97; BMI 29.5
== END 2025-01-01 14:20 | disposition home or self-care (01) ==
LOC: HODSRG 13:45
PROVIDERS: PCP Internal Medicine; Referring Provider Internal Medicine; Supervising Provider Orthopaedic Surgery Adult Reconstructive Orthopaedic Surgery; Visit Provider Orthopaedic Surgery Adult Reconstructive Orthopaedic Surgery
DX: M25.561 Pain in right knee (principal); M17.11 Unilateral primary osteoarthritis, right knee; M71.21 Synovial cyst of popliteal space [Baker], right knee; M23.306 Other meniscus derangements, unspecified meniscus, right knee
CPT/HCPCS: 99213; G0463